=== PATIENT | female | born 1960 | race Caucasian/White ===

== ENCOUNTER 2022-01-10 18:01 | Emergency (ER) | payer SELFPAY ==
--- NOTE | 2022-01-10 20:25 | RAD REPORT ---
EXAM DESCRIPTION: RAD - Chest Pa And Lat (2 Views) - 01/10/2022 8:08 pm CLINICAL HISTORY: COUGH COMPARISON: None TECHNIQUE: Frontal and lateral views of the chest were obtained. FINDINGS: The lungs are clear. Heart size is normal and central vasculature is within normal limit s. No pleural effusion or pneumothorax seen. No acute bony finding noted. No aortic abnormality. IMPRESSION: No acute cardiopulmonary process.
[2022-01-10] MEDS ORDERED: ALBUTEROL INHALER 60 PUFF/8 GM IH ONE (21:36)
--- NOTE | 2022-01-10 21:38 | EDPHYS ---
Physician Documentation [facility] Name: Charles Sandoval Age: 61 yrs Sex: Female : 1960 Arrival Date: 01/10/2022 Time: 18:05 Bed DIS2 Private MD: ED Physician Marino Maravilla HPI: 01/10 20:00 This 61 yrs old Female presents to ER via Ambulatory with complaints of Ear Pain, cp Congestion. 20:00 The patient presents with drainage, that is purulent, a fullness, hearing loss, cp partial. The complaints affect the right ear and left ear. Associated signs and symptoms: Pertinent positives: congestion times 2 weeks, cough, Pertinent negatives: fever. Patient currently taking prescribed Levaquin for cough, congestion. Patient reports not being vaccinated against COVID-19. Historical: - Allergies: 19:00 PENICILLINS; jl7 - PMHx: 19:00 Hypertensive disorder; Chronic back pain; jl7 - Immunization history:: Client reports having NOT received the Covid vaccine. - Social history:: Smoking status: Patient reports the use of cigarette tobacco products, smokes one pack cigarettes per day. ROS: 20:05 Constitutional: Negative for body aches, fever, poor PO intake. cp 20:05 Eyes: Negative for injury, pain, redness, and discharge. cp 20:05 ENT: Positive for drainage from ear(s), ear pain, Negative for sore throat, difficulty swallowing, difficulty handling secretions. 20:05 Neck: Negative for pain with movement, pain at rest, stiffness. 20:05 Cardiovascular: Negative for chest pain, edema, palpitations. 20:05 Respiratory: Positive for cough, "sounds productive". 20:05 Skin: Negative for rash. 20:05 Neuro: Negative for altered mental status, headache, weakness. 20:05 All other systems are negative. Exam: 20:10 Constitutional: The patient appears in no acute distress, alert, awake, cp non-diaphoretic, non-toxic, well developed, well nourished. 20:10 Head/Face: Normocephalic, atraumatic. cp 20:10 Eyes: Periorbital structures: appear normal, Conjunctiva: normal, no exudate, no injection, Lids and lashes: appear normal, bilaterally. 20:10 ENT: External ear(s): are unremarkable, Ear canal(s): are normal, clear, TM's: bulging, on the right, erythema, that is mild, bilaterally, rupture, on the left, scant discharge noted, Nose: is normal, Mouth: Lips: moist, Oral mucosa: pink and intact, moist, Posterior pharynx: Airway: no evidence of obstruction, patent, Tonsils: no enlargement, no exudate, erythema, that is mild, exudate, is not appreciated. 20:10 Neck: ROM/movement: is normal, is supple, without pain, no range of motions limitations, no meningismus, no nuchal rigidity, Lymph nodes: no appreciated lymphadenopathy. 20:10 Chest/axilla: Inspection: normal. 20:10 Cardiovascular: Rate: normal, Rhythm: regular, Edema: is not appreciated, JVD: is not appreciated. 20:10 Respiratory: the patient does not display signs of respiratory distress, Respirations: normal, no use of accessory muscles, no retractions, labored breathing, is not present, Breath sounds: bronchial sounds, that are mild, are heard diffusely, stridor, is not appreciated, + upper airway congestion. wheezing: is not appreciated. 20:10 Abdomen/GI: Exam negative for discomfort, distension, guarding, Inspection: abdomen appears normal. 20:10 Back: pain, is absent, ROM is normal. 20:10 Neuro: Orientation: to person, place \\T\\ time. Mentation: is normal, Motor: moves all fours, strength is normal, Sensation: is normal. Vital Signs: 18:58 BP 157 / 102; Pulse 93; Resp 17; Temp 98.1; Pulse Ox 100% on R/A; Weight 74.84 kg; jl7 Height 5 ft. 4 in. (162.56 cm); Pain 5/10; 20:28 BP 146 / 99; Pulse 89; Resp 18; Pulse Ox 100% on R/A; ld1 18:58 Body Mass Index 28.32 (74.84 kg, 162.56 cm) jl7 MDM: 19:57 Patient medically screened. cp 20:30 Differential diagnosis: otitis media, otitis externa, ruptured TM, cerumen impaction, cp barotrauma , bronchitis, pneumonia, influenza, COVID-19. 21:37 Data reviewed: vital signs, nurses notes, lab test result(s), radiologic studies, plain cp films. 21:37 Test interpretation: by ED physician or midlevel provider: plain radiologic studies. cp Counseling: I had a detailed discussion with the patient and/or guardian regarding: the historical points, exam findings, and any diagnostic results supporting the discharge/admit diagnosis, lab results, radiology results, to return to the emergency department if symptoms worsen or persist or if there are any questions or concerns that arise at home. Response to treatment: the patient's symptoms have markedly improved after treatment, and as a result, I will discharge patient. 01/10 19:04 Order name: Influenza Screen (a \\T\\ B); Complete Time: 21:04 cp 01/10 19:04 Order name: COVID-19 SARS RT PCR (Document "Date of Onset" if Symptomatic); Complete cp Time: 21:30 01/10 21:30 Interpretation: SARSCOV2 RT PCR POSITIVE; Reviewed. cp 01/10 19:04 Order name: XRAY Chest Pa And Lat (2 Views); Complete Time: 21:04 cp 01/10 21:04 Interpretation: Report reviewed. cp Administered Medications: 21:33 Drug: Albuterol HFA Inhaler 2 puffs Route: Inhalation; ld1 21:33 Drug: Tussionex Pennkinetic ER (chlorpheniramine-hydrocodone) Suspension 5 ml Route: PO;ld1 Disposition Summary: 01/10/22 21:38 Discharge Ordered Location: Home cp Problem: new cp Symptoms: have improved cp Condition: Stable cp Diagnosis - SARS-associated coronavirus as the cause of diseases classified elsewhere cp - Acute suppurative otitis media with spontaneous rupture of ear drum, left ear cp - Acute serous otitis media, right ear cp Followup: cp - With: Private Physician - When: 2 - 3 days - Reason: Recheck today's complaints Discharge Instructions: - Discharge Summary Sheet cp - Otitis Media, Adult cp - Aspirin and Your Heart cp - COVID-19 cp - Things to Know about the COVID-19 Pandemic - [facility] cp - 10 Things You Can Do to Manage Your COVID-19 Symptoms at Home - [facility] cp - COVID-19: Quarantine vs. Isolation - [facility] cp - Prevent the Spread of COVID-19 if You Are Sick - [facility] cp Forms: - Medication Reconciliation Form cp - Thank You Letter cp - Antibiotic Education cp - Prescription Opioid Use cp Prescriptions: - Bromfed DM 2-30-10 mg/5 mL Oral syrup - take 10 milliliter by ORAL route every 6 hours; 180 milliliter; Refills: 0, cp Product Selection Permitted - clarithromycin 500 mg Oral tablet - take 1 tablet by ORAL route every 12 hours for 10 days; 20 tablet; Refills: 0, cp Product Selection Permitted - Medrol (Good) 4 mg Oral Tablets, Dose Pack - take 1 tablet by ORAL route as directed - follow package instructions; 1 cp packet; Refills: 0, Product Selection Permitted - albuterol sulfate 90 mcg/actuation Inhalation HFA aerosol inhaler - inhale 1 puff by INHALATION route every 4-6 hours; 1 Inhaler; Refills: 0, cp Product Selection Permitted Signatures: Dispatcher [employer] EDMarino Sandhu PA PA cp Leal, Jahala, RN RN jl7 Elizabeth Han RN RN ld1
--- NOTE | 2022-01-10 21:38 | ER ---
Nurse's Notes [facility] Name: Charles Sandoval Age: 61 yrs Sex: Female : 1960 Arrival Date: 01/10/2022 Time: 18:05 Bed DIS2 Private MD: Diagnosis: SARS-associated coronavirus as the cause of diseases classified elsewhere;Acute suppurative otitis media with spontaneous rupture of ear drum, left ear;Acute serous otitis media, right ear Presentation: 01/10 18:58 Chief complaint: Patient states: Fatigue, [place], left ear congestion x 2 weeks. jl7 Coronavirus screen: At this time, the client does not indicate any symptoms associated with coronavirus-19. Ebola Screen: No symptoms or risks identified at this time. Initial Sepsis Screen: Does the patient meet any 2 criteria? No. Patient's initial sepsis screen is negative. Does the patient have a suspected source of infection? No. Patient's initial sepsis screen is negative. Risk Assessment: Do you want to hurt yourself or someone else? Patient reports no desire to harm self or others. Onset of symptoms was December 27, 2021. 18:58 Method Of Arrival: Ambulatory [facility] 18:58 Acuity: SHADI 3 jl7 Triage Assessment: 21:46 EENT: No signs and/or symptoms were reported regarding the EENT system. 3 Historical: - Allergies: 19:00 PENICILLINS; jl7 - PMHx: 19:00 Hypertensive disorder; Chronic back pain; jl7 - Immunization history:: Client reports having NOT received the Covid vaccine. - Social history:: Smoking status: Patient reports the use of cigarette tobacco products, smokes one pack cigarettes per day. Screenin:28 Abuse screen: Denies threats or abuse. Denies injuries from another. Nutritional ld1 screening: No deficits noted. Tuberculosis screening: No symptoms or risk factors identified. Fall Risk None identified. Assessment: 20:28 Reassessment: See triage assessment. ld1 20:32 General: Appears in no apparent distress. comfortable, Behavior is calm, cooperative, ld1 appropriate for age. Pain: Denies pain. Vital Signs: 18:58 BP 157 / 102; Pulse 93; Resp 17; Temp 98.1; Pulse Ox 100% on R/A; Weight 74.84 kg; jl7 Height 5 ft. 4 in. (162.56 cm); Pain 5/10; 20:28 BP 146 / 99; Pulse 89; Resp 18; Pulse Ox 100% on R/A; ld1 18:58 Body Mass Index 28.32 (74.84 kg, 162.56 cm) jl7 ED Course: 18:05 Patient arrived in ED. rg4 18:13 Marino Hadley PA is PHCP. cp 18:14 Marino Maravilla MD is Attending Physician. cp 18:59 Triage completed. jl7 19:00 Arm band placed on right wrist. jl7 20:09 XRAY Chest Pa And Lat (2 Views) In Process Unspecified. EDMS 20:15 Elizabeth Han, RN is Primary Nurse. ld1 20:28 Patient has correct armband on for positive identification. Placed in gown. Bed in low ld1 position. Call light in reach. Side rails up X2. Pulse ox on. NIBP on. Door closed. Noise minimized. Warm blanket given. 20:28 COVID-19 SARS RT PCR (Document "Date of Onset" if Symptomatic) Sent. ld1 20:28 Influenza Screen (a \\T\\ B) Sent. ld1 20:28 No provider procedures requiring assistance completed. Patient did not have IV access ld1 during this emergency room visit. Administered Medications: 21:33 Drug: Albuterol HFA Inhaler 2 puffs Route: Inhalation; ld1 21:33 Drug: Tussionex Pennkinetic ER (chlorpheniramine-hydrocodone) Suspension 5 ml Route: PO;ld1 Medication: 20:28 VIS not applicable for this client. ld1 Outcome: 21:38 Discharge ordered by . cp 21:47 Discharged to home ambulatory. 3 21:47 Condition: stable 21:47 Discharge instructions given to patient, Instructed on discharge instructions, follow up and referral plans. medication usage, Demonstrated understanding of instructions, follow-up care, medications, Prescriptions given X 4. 21:52 Patient left the ED. eh3 Signatures: Dispatcher [employer] EDWA Marino Hadley PA PA cp Garcia, Rubi rg4 Abiola Morales RN RN jl7 Elizabeth Han, CAROLINA RN ld1 Kia Padilla 3
[2022-01-10] MEDS ORDERED: HYDROCODONE/CHLORPHEN 5 ML/OSYR ONE (21:40)
[2022-01-10 22:00] VITALS: TEMP 98.1; O2SAT 100
[2022-01-10 22:03] VITALS: BP 146/99
== END 2022-01-10 21:52 | disposition home or self-care (01) ==
LOC: ER 18:01
DX: U07.1 COVID-19 (principal); H66.012 Acute suppurative otitis media with spontaneous rupture of ear drum, left ear; H65.01 Acute serous otitis media, right ear; I10 Essential (primary) hypertension; F17.210 Nicotine dependence, cigarettes, uncomplicated; Z88.0 Allergy status to penicillin
CPT/HCPCS: 71046; 87804; 99284; U0003